=== PATIENT | female | born 1995 | race Asian ===

== ENCOUNTER 2020-10-07 14:18 | Outpatient (CLI) | payer BC ==
[2020-10-07 17:22] LABS: BHCG - Serum Negative (NEGATIVE)
[2020-10-07 17:23] LABS: Pregs Control Background? CLEAR/WHITE (CLR/WHITE); Pregs Control Bar Appear? YES (CONTROL BAR)
== END 2020-10-07 14:19 | disposition home or self-care (01) ==
LOC: LABBT 14:18
PROVIDERS: ATTEND Student in an Organized Health Care Education/Training Program
DX: Z01.812 Encounter for preprocedural laboratory examination (principal); E04.1 Nontoxic single thyroid nodule; R13.10 Dysphagia, unspecified; R09.89 Other specified symptoms and signs involving the circulatory and respiratory systems; R68.89 Other general symptoms and signs
CPT/HCPCS: 84703; 85014

== ENCOUNTER 2020-10-12 09:12 | Observation (INO) | payer BC ==
[2020-10-12] MEDS ORDERED: Lidocaine 1% w/Epinephrine 1:100K 20 ML VIAL ONE (09:42)
[2020-10-12] MEDS ORDERED: Bacitracin Zinc Ointment 30 gm TUBE ONE (09:42)
[2020-10-12] MEDS ORDERED: Fentanyl 250 MCG/5 ML VIAL ONE (09:46)
[2020-10-12] MEDS ORDERED: Midazolam HCl 2 mg/2 ml Vial ONE (10:23)
[2020-10-12] MEDS ORDERED: Acetaminophen 500 MG TAB ONE (10:29)
[2020-10-12] MEDS ORDERED: Ondansetron PF 4 MG/2 ML Vial ONE (10:45)
[2020-10-12] MEDS ORDERED: Glycopyrrolate 0.2 MG/ML 5 ML SYRINGE ONE (10:45)
[2020-10-12] MEDS ORDERED: Ketorolac Tromethamine 30 MG/ML VIAL ONE (10:45)
[2020-10-12] MEDS ORDERED: Rocuronium Bromide 10 MG/ML (10ML VIAL) ONE (10:45)
[2020-10-12] MEDS ORDERED: PROPOFOL 200 MG/20 ML VIAL ONE (10:45)
[2020-10-12] MEDS ORDERED: Lidocaine 1% PF 5 ML VIAL ONE (10:45)
[2020-10-12] MEDS ORDERED: Dexamethasone 20 MG/5 ML VIAL ONE (10:45)
[2020-10-12] MEDS ORDERED: PHENYLEPHRINE-NS 100 MCG/ML 10 ML SYRINGE ONE (10:45)
[2020-10-12] MEDS ORDERED: Promethazine HCl 25 MG/ML VIAL IM PRN (13:21)
[2020-10-12] MEDS ORDERED: Ondansetron HCl/PF 4 MG/2 ML Vial IVP PRN (13:21)
[2020-10-12] MEDS ORDERED: Morphine Sulfate 2 MG/ML SYRINGE SLOW IVP PRN (13:21)
[2020-10-12] MEDS ORDERED: Promethazine HCl 25 MG/ML VIAL SLOW IVP PRN (13:21)
[2020-10-12] MEDS ORDERED: Meperidine HCl/PF 25 MG/ML VIAL SLOW IVP PRN (13:21)
[2020-10-12] MEDS ORDERED: HYDROmorphone 2 MG/ML VIAL SLOW IVP PRN (13:21)
[2020-10-12] MEDS ORDERED: HYDROcodone/Acetaminophen 5/325 mg Tablet PO PRN (13:45)
[2020-10-12] MEDS ORDERED: Lactated Ringer's 1,000 ML IV SCH (13:45)
[2020-10-12] MEDS ORDERED: Ondansetron PF 4 MG/2 ML Vial IVP PRN (13:45)
[2020-10-12] MEDS ORDERED: Fentanyl 100 MCG/2 ML VIAL ONE (14:14)
[2020-10-12 20:11] VITALS: BMI 21.8
[2020-10-13 07:42] VITALS: BP 98/63; TEMP 98.1
== END 2020-10-13 10:31 | disposition home or self-care (01) ==
LOC: SDC 09:12 → T4-A 13:16
PROVIDERS: ADMIT Student in an Organized Health Care Education/Training Program; ATTEND Student in an Organized Health Care Education/Training Program
PROC: 0GBJ0ZZ Excision of Thyroid Gland Isthmus, Open Approach (ICD-10-PCS; principal; 2020-10-12)
PROC: 0GBG0ZZ Excision of Left Thyroid Gland Lobe, Open Approach (ICD-10-PCS; 2020-10-12)
DX: E04.1 Nontoxic single thyroid nodule (principal)
CPT/HCPCS: 36415; 82310; 83970; 88307; G0378; J0690; J1100; J1885; J2250; J2405; J2704; J3010